=== PATIENT | female | born 1990 | race Caucasian/White ===

== ENCOUNTER 2022-05-08 00:40 | Inpatient (IN) | payer BC, OTHER ==
[2022-05-08] MEDS: ELECTROLYTE-148 SOLN 1,000 ML IV SCH ×3 (02:00→17:45)
[2022-05-08 02:18] LABS: BASO % 0.2 % (0-2.0); EOS % 1.4 % (0-4.5); HEMATOCRIT 37.8 % (32.4-45.2); HEMOGLOBIN 12.5 GM/dL (10.7-15.3); LYMPH % 15.6 % (8-40); MCH 29.9 pg (25.7-33.7); MCHC 33.1 g/dl (32.0-36.0); MEAN CELL VOLUME 90.4 fl (80-96); MONO % 8.4 % (3.8-10.2); NEUT % 74.4 % (42.8-82.8); PLATELET COUNT 183 10^3/uL (134-434); RBC 4.18 M/mm3 (3.60-5.2); RDW 14.5 % (11.6-15.6); WHITE BLOOD COUNT 11.9 K/mm3 (4.0-10.0)
[2022-05-08] MEDS ORDERED: BUTORPHANOL TARTRATE 2 MG/ML VIAL ONE (02:22)
[2022-05-08] MEDS ORDERED: PROMETHAZINE HCL 25 MG/1 ML VIAL ONE (02:22)
[2022-05-08] MEDS ORDERED: PROMETHAZINE HCL 25 MG/1 ML VIAL IVPB ONE (02:30)
[2022-05-08] MEDS ORDERED: BUTORPHANOL TARTRATE 2 MG/ML VIAL IVPB ONE (02:30)
[2022-05-08 02:39] LABS: BLOOD UREA NITROGEN 7.6 mg/dL (7-18); CALCIUM 9.2 mg/dL (8.5-10.1)
[2022-05-08 02:43] LABS: CREATININE 0.6 mg/dL (0.55-1.3)
[2022-05-08 02:53] LABS: INR 0.95 (0.83-1.09); PROTHROMBIN TIME (PATIENT) 10.9 SEC (9.7-13.0)
[2022-05-08 02:56] LABS: ACTIVATED PTT 28.3 SECONDS (25.2-36.5)
[2022-05-08 03:35] LABS: HIV INTERPRETATION NEGATIVE (NEGATIVE)
[2022-05-08 04:05] VITALS: BMI 29.4
[2022-05-08] MEDS ORDERED: DEXTROSE 5%-LACTATED RINGERS 1,000 ML IV SCH (08:15)
[2022-05-08] MEDS ORDERED: OXYTOCIN 30 UNITS in 0.9% NS 30 UNIT/500 ML INFUS.BAG IVPB SCH (08:15)
[2022-05-08] MEDS ORDERED: OXYTOCIN 30 UNITS in 0.9% NS 30 UNIT/500 ML INFUS.BAG IVPB ONE (11:13)
[2022-05-08] MEDS ORDERED: FENTANYL/BUPIVACAINE/NS/PF - PCEA - 50 ML DISP.SYRIN EP ONE ×2 (14:43→18:23)
[2022-05-08] MEDS: FENTANYL/BUPIVACAINE/NS/PF - PCEA - 50 ML DISP.SYRIN EP SCH ×2 (15:01→18:25)
[2022-05-08] MEDS ORDERED: NALOXONE HCL 0.4 MG/ML VIAL IVPUSH PRN (15:25)
[2022-05-08] MEDS ORDERED: BUPIVACAINE HCL/PF 0.25% (2.5MG/ML) 10 ML VIAL ONE (19:55)
[2022-05-08] MEDS ORDERED: KETOROLAC TROMETHAMINE 30 MG/1 ML VIAL ONE (21:37)
[2022-05-08] MEDS ORDERED: OXYTOCIN 10 UNITS/ML VIAL ONE (21:37)
[2022-05-08] MEDS ORDERED: ONDANSETRON 4 MG/2 ML VIAL ONE (21:37)
[2022-05-08] MEDS ORDERED: ONDANSETRON 4 MG/2 ML VIAL IVPUSH PRN (22:57)
[2022-05-08] MEDS ORDERED: morphine SULFATE/PF 1 MG/2 ML (2cc Syringe - QUVA) EP ONE (22:57)
[2022-05-08] MEDS ORDERED: ACETAMINOPHEN 1000 MG/100 ML BAG IVPB ONE (22:58)
[2022-05-08] MEDS ORDERED: OXYTOCIN 20 UNITS in 0.9% NS 20 UNIT/1,000 ML INFUS.BAG IV SCH (23:45)
[2022-05-08] MEDS ORDERED: ACETAMINOPHEN 325 MG TABLET (FP) PO PRN (23:53)
[2022-05-08] MEDS ORDERED: METHYLERGONOVINE MALEATE 0.2 MG/1 ML AMP IM PRN (23:53)
[2022-05-08] MEDS ORDERED: IBUPROFEN 800 MG/8 ML IJ IVPB PRN (23:53)
[2022-05-08] MEDS ORDERED: SENNOSIDES/DOCUSATE COMBO (SENNA PLUS) TABLET (UD) PO PRN (23:53)
[2022-05-09] MEDS ORDERED: ACETAMINOPHEN INJECTION 100 ML IVPB ONE (01:06)
[2022-05-09] MEDS: ELECTROLYTE-148 SOLN 1,000 ML IV SCH (02:40)
[2022-05-09 08:39] LABS: BASO % 0.3 % (0-2.0); EOS % 0.3 % (0-4.5); HEMATOCRIT 30.8 % (32.4-45.2); HEMOGLOBIN 10.1 GM/dL (10.7-15.3); LYMPH % 11.1 % (8-40); MCH 29.8 pg (25.7-33.7); MCHC 32.8 g/dl (32.0-36.0); MEAN CELL VOLUME 91.1 fl (80-96); MEAN PLT VOLUME 10.2 fl (7.5-11.1); MONO % 10.6 % (3.8-10.2); NEUT % 77.7 % (42.8-82.8); PLATELET COUNT 152 10^3/uL (134-434); RBC 3.38 M/mm3 (3.60-5.2); RDW 14.4 % (11.6-15.6); WHITE BLOOD COUNT 13.5 K/mm3 (4.0-10.0)
[2022-05-09] MEDS: IBUPROFEN 600 MG TABLET (FP) PO PRN ×3 (11:09→23:06)
[2022-05-09] MEDS: PRENATAL VITAMINS W/ FOLIC ACID TABLET (FP) PO SCH (11:09)
[2022-05-09] MEDS ORDERED: oxyCODONE HCL 5 MG TABLET PO PRN ×2 (11:53)
[2022-05-09 22:37] VITALS: RESP 18
[2022-05-09] MEDS: SIMETHICONE 80 MG TAB.CHEW (FP) PO PRN (23:06)
[2022-05-09] MEDS ORDERED: BISACODYL 10 MG SUPP.RECT RC PRN (23:53)
[2022-05-10] MEDS: IBUPROFEN 600 MG TABLET (FP) PO PRN ×2 (08:54→18:12)
[2022-05-10] MEDS ORDERED: DIPHTH,PERTUSS(ACELL),TET 0.5 ML DISP.SYRIN IM ONE (10:00)
[2022-05-10] MEDS: PRENATAL VITAMINS W/ FOLIC ACID TABLET (FP) PO SCH (11:08)
[2022-05-10] MEDS: HYDROCORTISONE 0.5% TOPICAL CREAM 30 GM TUBE TP SCH ×2 (18:12→23:13)
[2022-05-11] MEDS: IBUPROFEN 600 MG TABLET (FP) PO PRN ×2 (04:40→10:53)
[2022-05-11 10:16] VITALS: BP 117/61; PULSE 88; TEMP 98.6
[2022-05-11] MEDS: SIMETHICONE 80 MG TAB.CHEW (FP) PO PRN (10:53)
[2022-05-11] MEDS: PRENATAL VITAMINS W/ FOLIC ACID TABLET (FP) PO SCH (10:53)
[2022-05-11] MEDS: HYDROCORTISONE 0.5% TOPICAL CREAM 30 GM TUBE TP SCH (11:03)
== END 2022-05-11 13:05 | disposition home or self-care (01) | DRG 788 ==
LOC: JDEL 00:40 → JLDR 01:35 → J3W 05-09 01:24
PROVIDERS: ADMIT Obstetrics & Gynecology; ATTEND Obstetrics & Gynecology
PROC: 10D00Z1 Extraction of Products of Conception, Low, Open Approach (ICD-10-PCS; principal; 2022-05-08)
PROC: 10907ZC Drainage of Amniotic Fluid, Therapeutic from Products of Conception, Via Natural or Artificial Opening (ICD-10-PCS; 2022-05-08)
DX: O62.9 Abnormality of forces of labor, unspecified (principal); Z3A.40 40 weeks gestation of pregnancy; Z37.0 Single live birth
CPT/HCPCS: 36415; 80048; 85025; 85610; 85730; 86780; 86850; 86900; 86901; 87389; 88307-TC; C9803-CS; U0003; U0005

== ENCOUNTER 2024-06-15 08:00 | Inpatient (IN) | payer BC, OTHER ==
[2024-06-15] MEDS: ELECTROLYTE-148 SOLN 1,000 ML IV SCH (13:00)
[2024-06-15] MEDS ORDERED: ONDANSETRON 4 MG/2 ML VIAL IVPUSH PRN (13:03)
[2024-06-15] MEDS ORDERED: IBUPROFEN 600 MG TABLET (FP) PO PRN (13:03)
[2024-06-15] MEDS ORDERED: ACETAMINOPHEN 325 MG TABLET (FP) PO PRN ×2 (13:03→17:52)
[2024-06-15 13:08] VITALS: BMI 29.5
[2024-06-15] MEDS: CITRIC ACID/SODIUM CITRATE 30 ML UNIT-DOSE CUP PO ONE (13:42)
[2024-06-15] MEDS ORDERED: morphine SULFATE/PF 1 MG/2 ML (2cc Syringe - QUVA) ONE (14:07)
[2024-06-15] MEDS ORDERED: FENTANYL CITRATE/PF 50 MCG/ML VIAL ONE (14:07)
[2024-06-15] MEDS ORDERED: ceFAZolin SODIUM 1 GM VIAL ONE (14:48)
[2024-06-15] MEDS ORDERED: DEXAMETHASONE SOD PHOSPHATE 4 MG/1 ML VIAL ONE (14:48)
[2024-06-15] MEDS ORDERED: ONDANSETRON 4 MG/2 ML VIAL ONE (14:48)
[2024-06-15] MEDS ORDERED: KETOROLAC TROMETHAMINE 30 MG/1 ML VIAL ONE ×2 (14:48→15:21)
[2024-06-15] MEDS ORDERED: LIDOCAINE HCL/PF 2% SDV 5ML VIAL ONE (15:38)
[2024-06-15] MEDS ORDERED: PHENYLEPHRINE HCL 10 MG/1 ML SINGLE DOSE VIAL ONE (15:39)
[2024-06-15] MEDS ORDERED: OXYTOCIN 20 UNITS in 0.9% NS 20 UNIT/1,000 ML INFUS.BAG IV ONE (16:40)
[2024-06-15] MEDS: OXYTOCIN 20 UNITS in 0.9% NS 20 UNIT/1,000 ML INFUS.BAG IV SCH (16:40)
[2024-06-15] MEDS ORDERED: METHYLERGONOVINE MALEATE 0.2 MG/1 ML AMP IM PRN (17:52)
[2024-06-15] MEDS ORDERED: IBUPROFEN 800 MG/8 ML IJ IVPB ONE (19:11)
[2024-06-15] MEDS: IBUPROFEN 800 MG/8 ML IJ IVPB PRN (19:18)
[2024-06-16] MEDS ORDERED: oxyCODONE HCL 5 MG TABLET PO PRN (05:52)
[2024-06-16 07:49] LABS: BASO % 0.2 % (0-2.0); EOS % 0.1 % (0-4.5); HEMATOCRIT 31.5 % (32.4-45.2); HEMOGLOBIN 10.5 GM/dL (10.7-15.3); LYMPH % 14.6 % (8-40); MCH 30.8 pg (25.7-33.7); MCHC 33.4 g/dl (32.0-36.0); MEAN CELL VOLUME 92.1 fl (80-96); MEAN PLT VOLUME 9.7 fl (7.5-11.1); MONO % 7.9 % (3.8-10.2); NEUT % 77.2 % (42.8-82.8); PLATELET COUNT 143 10^3/uL (134-434); RBC 3.42 M/mm3 (3.60-5.2); RDW 14.1 % (11.6-15.6); WHITE BLOOD COUNT 12.7 K/mm3 (4.0-10.0)
[2024-06-16] MEDS: FERROUS SO4 325 MG TABLET (FP) PO SCH (10:42)
[2024-06-16] MEDS: PRENATAL VITAMINS W/ FOLIC ACID TABLET (FP) PO SCH (10:42)
[2024-06-16] MEDS: IBUPROFEN 600 MG TABLET (FP) PO PRN (11:19)
[2024-06-16] MEDS: SIMETHICONE 80 MG TAB.CHEW (FP) PO PRN (11:19)
[2024-06-16] MEDS: oxyCODONE HCL 5 MG TABLET PO PRN (14:59)
[2024-06-16] MEDS ORDERED: BISACODYL 10 MG SUPP.RECT RC PRN (17:52)
[2024-06-16 23:49] VITALS: RESP 18
[2024-06-17] MEDS: SENNOSIDES/DOCUSATE COMBO (SENNA PLUS) TABLET (UD) PO PRN (22:00)
[2024-06-18 09:55] VITALS: BP 108/67; PULSE 88; TEMP 97.8
== END 2024-06-18 12:35 | disposition home or self-care (01) | DRG 788 ==
LOC: JLDR 11:20 → J3W 20:30
PROVIDERS: ADMIT Obstetrics & Gynecology; ATTEND Obstetrics & Gynecology
PROC: 10D00Z1 Extraction of Products of Conception, Low, Open Approach (ICD-10-PCS; principal; 2024-06-15)
DX: O34.219 Maternal care for unspecified type scar from previous cesarean delivery (principal); Z3A.39 39 weeks gestation of pregnancy; Z37.0 Single live birth
CPT/HCPCS: 36415; 59409; 85025; 88307-TC; 94010